=== PATIENT | female | born 1990 | race American Indian/Alaskan Native ===

== ENCOUNTER 2017-11-12 00:55 | Emergency (ER) | payer OTHER ==
[2017-11-12 01:29] VITALS: BP 134/99
[2017-11-12 03:36] LABS: HCG Qualitative,Urine Negative (Negative)
[2017-11-12 03:38] LABS: Bilirubin,Urine NEG (Negative); Blood,Urine NEG (Negative); Color,Urine Yellow (Yellow); Mucus,Urine FEW /HPF; Nitrite,Urine NEG (Negative); Protein,Urine <15 mg/dL mg/dL (Negative); RBC,Urine < 1.0 /HPF (0.0-6.0); Urobilinogen,Urine < 2.0 mg/dL (<2.0)
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
[2017-11-12] MEDS ORDERED: MOTRIN PO ONE (06:39)
== END 2017-11-12 07:00 ==
LOC: ED 00:55 → EEVIPCON 00:55 → ED 07:00
DX: S00.33XA Contusion of nose, initial encounter (principal); V49.49XA Driver injured in collision with other motor vehicles in traffic accident, initial encounter; Y93.89 Activity, other specified; Y92.89 Other specified places as the place of occurrence of the external cause; Y99.8 Other external cause status
CPT/HCPCS: 70450; 72125; 81001; 81025